=== PATIENT | male | born 1980 | race Hispanic/Latino ===

== ENCOUNTER 2020-11-19 13:42 | Emergency (ER) | payer OTHER ==
[~2020-11-19] VITALS: Ht 154.9 cm; Wt 70.0 kg
[2020-11-19 14:11] VITALS: BP 132/86
[2020-11-19] MEDS ORDERED: PREDNISONE20 MG PO (15:40)
[2020-11-19] MEDS ORDERED: BENADRYL25 M1 PO (15:40)
[2020-11-19] MEDS ORDERED: PEPCID20 MG PO (15:40)
[2020-11-19] MEDS ORDERED: KEFLEX500 MG PO (15:40)
== END 2020-11-19 15:43 | disposition home or self-care (01) | DRG 918 ==
LOC: ED 13:42
DX: T63.441A Toxic effect of venom of bees, accidental (unintentional), initial encounter (principal)